=== PATIENT | female | born 1940 | race Caucasian/White ===

== ENCOUNTER → 2018-11-17 | Outpatient (REF) | payer MEDICARE, BC | LOC: M LAB REF 13:21 | PROVIDERS: ATTEND Physician Assistant | DX: J02.9 Acute pharyngitis, unspecified (principal) ==

== ENCOUNTER 2023-12-18 14:01 | Observation (INO) | payer MEDICARE, OTHER ==
[~2023-12-18] VITALS: Ht 160 cm; Wt 52.3 kg
[2023-12-18] MEDS ORDERED: XARE20TA PO (14:12)
[2023-12-18] MEDS ORDERED: AMLO1TAB24 PO (14:12)
[2023-12-18] MEDS ORDERED: LEVO50TA5 PO (14:12)
[2023-12-18] MEDS ORDERED: RIFA1CAP9 PO (14:19)
[2023-12-18] MEDS ORDERED: ETHA1TAB2 PO (14:19)
[2023-12-18] MEDS ORDERED: METO1TAB32 PO (14:19)
[2023-12-18] MEDS ORDERED: BENZ-18 (14:19)
[2023-12-18] MEDS ORDERED: AZIT500T5 PO (14:19)
[2023-12-18] MEDS ORDERED: DOXY-346 (14:19)
[2023-12-18 14:23] VITALS: BP 181/82; TEMP 97.4; O2SAT 98
[2023-12-18] MEDS ORDERED: ISOVUE-370 76% 100ML VIAL As Ordered ONE (14:26)
[2023-12-18 14:50] LABS: BASO % 1.1 % (0.0-1.0); EOS # 0.2 10^3/uL (0.0-0.5); EOS % 4.1 % (0.0-3.0); HEMATOCRIT 36.1 % (36.0-47.0); HEMOGLOBIN 11.9 g/dl (12.0-15.5); LYMPH # 0.8 10^3/uL (1.5-5.0); LYMPH % 22.4 % (24.0-44.0); MEAN CORPUSCULAR HEMOGLOBIN 29.4 pg (27.0-33.0); MEAN CORPUSCULAR VOLUME 89.1 fl (80.0-96.0); MONO # 0.6 10^3/uL (0.0-0.8); MONO % 15.1 % (2.0-8.0); NEUTROPHILS # 2.1 10^3/uL (1.5-8.5); NEUTROPHILS % 55.9 % (36.0-66.0); PLATELET COUNT, AUTOMATED 264 10^3/uL (150-450); RED BLOOD COUNT 4.05 10^6/uL (4.00-5.40); WHITE BLOOD COUNT 3.7 10^3/uL (4.0-10.0)
[2023-12-18 15:04] LABS: INR 1.13; PROTHROMBIN TIME 14.2 SECONDS (12.5-14.5)
[2023-12-18] MEDS ORDERED: REPA140I2 SC (20:16)
[2023-12-18] MEDS ORDERED: HOME MED LIST COMPLETE! XX SCH (20:20)
[2023-12-18] MEDS: ACETAMINOPHEN TAB 650MG DOSE (2X325MG) PO PRN (21:00)
[2023-12-18] MEDS ORDERED: RIFABUTIN PO SCH (21:00)
[2023-12-18] MEDS: AZITHROMYCIN 250MG TABLET PO SCH (21:01)
[2023-12-18] MEDS: NS 1,000 ML IV SCH (21:02)
[2023-12-18] MEDS: amLODIPine 5 MG TAB PO SCH (21:02)
[2023-12-18] MEDS: METOPROLOL SUCC *XL* 25MG TAB (TopROL *XL*) PO SCH (21:02)
[2023-12-18] MEDS: RIVAROXABAN 20MG TAB (XARELTO) PO SCH (21:02)
[2023-12-18 22:21] LABS: BLOOD UREA NITROGEN 16 MG/DL (9-23); CALCIUM LEVEL 8.8 MG/DL (8.3-10.6); CARBON DIOXIDE LEVEL 28 MMOL/L (20-31); CHLORIDE LEVEL 98 MMOL/L (98-107); CREATININE FOR GFR 0.75 MG/DL (0.55-1.30); GLOMERULAR FILTRATION RATE > 60.0 (>32); GLUCOSE, FASTING 94 MG/DL (74-106); POTASSIUM SERUM 4.6 MMOL/L (3.5-5.1); SODIUM LEVEL 131 MMOL/L (136-145)
[2023-12-18 22:23] LABS: THYROID STIMULATING HORMONE 1.693 uIU/ML (0.55-4.78)
[2023-12-19] MEDS: LEVOTHYROXINE 50MCG TABLET (0.05MG) PO SCH (06:00)
[2023-12-19] MEDS: ETHAMBUTOL 400MG TAB PO SCH (08:29)
[2023-12-19 08:30] VITALS: BP 119/60
[2023-12-19] MEDS ORDERED: RIFABUTIN 150 MG PO SCH (09:00)
[2023-12-19 09:30] LABS: BASO % 1.3 % (0.0-1.0); EOS # 0.2 10^3/uL (0.0-0.5); EOS % 6.9 % (0.0-3.0); HEMATOCRIT 36.3 % (36.0-47.0); HEMOGLOBIN 12.2 g/dl (12.0-15.5); LYMPH # 0.9 10^3/uL (1.5-5.0); LYMPH % 26.7 % (24.0-44.0); MEAN CORPUSCULAR HEMOGLOBIN 29.9 pg (27.0-33.0); MEAN CORPUSCULAR HGB CONC 33.6 g/dl (32.0-36.5); MONO # 0.5 10^3/uL (0.0-0.8); NEUTROPHILS # 1.6 10^3/uL (1.5-8.5); NEUTROPHILS % 48.8 % (36.0-66.0); PLATELET COUNT, AUTOMATED 256 10^3/uL (150-450); RED BLOOD COUNT 4.08 10^6/uL (4.00-5.40); WHITE BLOOD COUNT 3.2 10^3/uL (4.0-10.0)
[2023-12-19 09:34] LABS: HEMOGLOBIN A1c 5.6 % (4.0-6.0)
[2023-12-19 09:37] LABS: ALBUMIN 3.5 G/DL (3.2-5.2); ALKALINE PHOSPHATASE 59 U/L (46-116); ALT/SGPT 13 U/L (7.0-40); AST/SGOT 17 U/L (<34); BILIRUBIN,TOTAL 0.6 MG/DL (0.3-1.2); BLOOD UREA NITROGEN 9 MG/DL (9-23); CALCIUM LEVEL 8.7 MG/DL (8.3-10.6); CARBON DIOXIDE LEVEL 27 MMOL/L (20-31); CHLORIDE LEVEL 103 MMOL/L (98-107); CREATININE FOR GFR 0.63 MG/DL (0.55-1.30); GLOMERULAR FILTRATION RATE > 60.0 (>32); GLUCOSE, FASTING 88 MG/DL (74-106); POTASSIUM SERUM 3.9 MMOL/L (3.5-5.1); SODIUM LEVEL 136 MMOL/L (136-145); TOTAL PROTEIN 7.2 G/DL (5.7-8.2)
[2023-12-19 09:39] LABS: CHOLESTEROL RISK RATIO 2.19 (<5); HDL CHOLESTEROL 69.6 MG/DL (>40); LDL CHOLESTEROL 66.4 MG/DL (<100); NON-HDL-C 83.4 MG/DL
[2023-12-19] MEDS ORDERED: ASPI81TA26 PO (10:24)
[2023-12-19 11:15] VITALS: BP 112/65; TEMP 98.5; O2SAT 98
== END 2023-12-19 11:40 | disposition home or self-care (01) ==
LOC: M ED 14:01 → EDBD 14:01 → M ED INP 14:02
PROVIDERS: ADMIT Preventive Medicine Undersea and Hyperbaric Medicine; ATTEND Internal Medicine
DX: R41.0 Disorientation, unspecified (principal); R47.01 Aphasia; G96.08 Other cranial cerebrospinal fluid leak; I67.82 Cerebral ischemia; G31.1 Senile degeneration of brain, not elsewhere classified; E87.1 Hypo-osmolality and hyponatremia; J98.4 Other disorders of lung; I48.0 Paroxysmal atrial fibrillation; I25.10 Atherosclerotic heart disease of native coronary artery without angina pectoris; E78.5 Hyperlipidemia, unspecified; I25.2 Old myocardial infarction; Z98.61 Coronary angioplasty status; A31.9 Mycobacterial infection, unspecified; I10 Essential (primary) hypertension; E03.9 Hypothyroidism, unspecified; Z88.8 Allergy status to other drugs, medicaments and biological substances; Z88.1 Allergy status to other antibiotic agents; Z79.899 Other long term (current) drug therapy; Z79.1 Long term (current) use of non-steroidal anti-inflammatories (NSAID); Z79.01 Long term (current) use of anticoagulants; Z79.890 Hormone replacement therapy
CPT/HCPCS: 36415; 70450; 70496; 70498; 70551; 71045; 80047; 80048; 80053; 80061; 83036; 83735; 84443; 85025; 85027; 85610; 85730; 93005; 93041; 93306; 94760; 96360; 96361; 97161; 99285; G0378; Q9967

== ENCOUNTER 2024-01-17 10:43 | Emergency (ER) | payer OTHER ==
[~2024-01-17] VITALS: Ht 160 cm; Wt 52.7 kg
[~2024-01-17 10:43] MED LIST: AMLO1TAB24 PO; ASPI81TA26 PO; AZIT500T5 PO; BENZ-18; DOXY-346; ETHA1TAB2 PO; LEVO50TA5 PO; METO1TAB32 PO; REPA140I2 SC; RIFA1CAP9 PO; XARE20TA PO
[2024-01-17 12:02] LABS: BASO % 0.8 % (0.0-1.0); EOS # 0.1 10^3/uL (0.0-0.5); EOS % 1.1 % (0.0-3.0); HEMATOCRIT 37.1 % (36.0-47.0); HEMOGLOBIN 12.8 g/dl (12.0-15.5); LYMPH # 0.7 10^3/uL (1.5-5.0); LYMPH % 12.6 % (24.0-44.0); MEAN CORPUSCULAR HEMOGLOBIN 30.6 pg (27.0-33.0); MEAN CORPUSCULAR HGB CONC 34.5 g/dl (32.0-36.5); MEAN CORPUSCULAR VOLUME 88.8 fl (80.0-96.0); MONO # 0.6 10^3/uL (0.0-0.8); MONO % 11.3 % (2.0-8.0); PLATELET COUNT, AUTOMATED 291 10^3/uL (150-450); RED BLOOD COUNT 4.18 10^6/uL (4.00-5.40); WHITE BLOOD COUNT 5.3 10^3/uL (4.0-10.0)
[2024-01-17] MEDS: MECLIZINE 25 MG TABLET PO ONE (12:10)
[2024-01-17 12:13] LABS: INR 1.16; PROTHROMBIN TIME 14.5 SECONDS (12.5-14.5)
[2024-01-17 12:24] LABS: LIPASE 54 U/L (12-53)
[2024-01-17 12:26] LABS: ALBUMIN 3.7 G/DL (3.2-5.2); ALKALINE PHOSPHATASE 47 U/L (46-116); ALT/SGPT 15 U/L (7.0-40); AST/SGOT 24 U/L (<34); BILIRUBIN,DIRECT 0.2 MG/DL (<0.4); BILIRUBIN,TOTAL 0.8 MG/DL (0.3-1.2); BLOOD UREA NITROGEN 14 MG/DL (9-23); CALCIUM LEVEL 9.1 MG/DL (8.3-10.6); CARBON DIOXIDE LEVEL 26 MMOL/L (20-31); CHLORIDE LEVEL 95 MMOL/L (98-107); GLOMERULAR FILTRATION RATE > 60.0 (>32); GLUCOSE, FASTING 109 MG/DL (74-106); POTASSIUM SERUM 4.1 MMOL/L (3.5-5.1); SODIUM LEVEL 128 MMOL/L (136-145); TOTAL PROTEIN 7.4 G/DL (5.7-8.2)
[2024-01-17 12:34] LABS: THYROID STIMULATING HORMONE 2.335 uIU/ML (0.55-4.78)
[2024-01-17 12:39] LABS: CPK CREATINE PHOSPHOKINASE 73 U/L (34-145); MB/CK RELATIVE INDEX 1.36 (< OR =4)
[2024-01-17 13:26] LABS: CK-MB VALUE MASS < 1.0 NG/ML (<3.6)
[2024-01-17 13:28] LABS: CPK CREATINE PHOSPHOKINASE 53 U/L (34-145); MB/CK RELATIVE INDEX 1.88 (< OR =4)
[2024-01-17] MEDS: ONDANSETRON 4MG 2ML VIAL IV ONE (13:31)
[2024-01-17] MEDS ORDERED: ASPI81TA28 PO (15:02)
[2024-01-17] MEDS ORDERED: ALBU8.5H INH (15:10)
[2024-01-17] MEDS ORDERED: HOME MED LIST COMPLETE! XX SCH (15:15)
[2024-01-17] MEDS ORDERED: MECL-209 PO (16:56)
[2024-01-17] MEDS ORDERED: vestibular PT (16:57)
[2024-01-17 17:50] VITALS: BP 137/72; TEMP 96.9; O2SAT 100
== END 2024-01-17 17:55 | disposition home or self-care (01) ==
LOC: M ED 10:43
DX: H81.393 Other peripheral vertigo, bilateral (principal); J84.9 Interstitial pulmonary disease, unspecified; I48.91 Unspecified atrial fibrillation; I25.2 Old myocardial infarction; I10 Essential (primary) hypertension; E03.9 Hypothyroidism, unspecified; Z88.8 Allergy status to other drugs, medicaments and biological substances; Z79.51 Long term (current) use of inhaled steroids; Z79.1 Long term (current) use of non-steroidal anti-inflammatories (NSAID); Z79.899 Other long term (current) drug therapy
CPT/HCPCS: 70450; 70544; 70551; 71045; 80048; 80076; 82550; 82553; 83690; 84443; 84484; 85025; 85610; 93005; 93041; 94760; 96374; 99285; J2405